=== PATIENT | female | born 2000 | race Caucasian/White ===

== ENCOUNTER 2022-02-27 19:14 | Emergency (ER) | payer MEDICAID ==
[~2022-02-27] VITALS: Ht 167.6 cm; Wt 80.0 kg
[2022-02-27 19:26] VITALS: BP 134/65
[2022-02-27] MEDS ORDERED: HYDR-4001 MT (23:06)
[2022-02-27] MEDS ORDERED: ACETAMINOPHEN 325MG TABLET PO ONE (23:15)
== END 2022-02-28 00:16 | disposition home or self-care (01) ==
LOC: ER 19:14
DX: N76.4 Abscess of vulva (principal); R03.0 Elevated blood-pressure reading, without diagnosis of hypertension
CPT/HCPCS: 10060; 99284; Z7610; 99281